=== PATIENT | male | born 1995 | race Caucasian/White ===

== ENCOUNTER 2016-11-08 02:14 | Emergency (ER) | payer SELFPAY ==
[2016-11-08] MEDS ORDERED: Sodium Chloride 0.9% 1000 ML 1,000 ML IV STA (02:34)
--- NOTE | 2016-11-08 02:35 | ERPHSYRPT ---
- History of Present Illness Time Seen by Provider: 11/08/16 02:27 Historian: patient Exam Limitations: no limitations Patient Subjective Stated Complaint: CHEST PAIN Triage Nursing Assessment: PATIENT SMOKED MARIJUANA AND THEN BEGAN EXPERIENCING CHEST PAIN THIS EVENING WAS CONCERNED BECAUSE HASA FAMILY HISTORY BUT ALSO WASNT SURE IF SOMETHING WAS IN DRUGS. PATIETN ALERT AND ORIETNEDX3, PUPILS PERRLA3, PULSES EQUAL BIALT RADIUS, LUNG SOUNDS CLEAR, BOWEL SOUNDS X4 Physician History: FOR THE PAST 31.5 HOURS PT HAS HAD CONSTANT SHARP LEFT ANTERIOR CHEST PAIN WITH DIAPHORESIS; DENIES NAUSEA, VOMITING, FEVER, SHORTNESS OF AIR; ADMITS TO CHRONIC DIARRHEA FOR YEARS. Aspirin Treatment Today: 81 mg x 4, provided by ED Allergies/Adverse Reactions: amoxicillin Allergy (Verified 11/08/16 02:24) Hx Tetanus, Diphtheria Vaccination/Date Given: Yes Immunizations Up to Date: Yes - Review of Systems Constitutional: No Fever Respiratory: No Dyspnea Cardiac: Chest Pain Abdominal/Gastrointestinal: Diarrhea, No Nausea, No Vomiting Endocrine: Excessive Sweating All Other Systems: Reviewed and Negative - Past Medical History Pertinent Past Medical History: No Respiratory History: Asthma Psycho-Social History: Bipolar, Depression - Past Surgical History Past Surgical History: Yes Gastrointestinal: Appendectomy - Social History Smoking Status: Current every day smoker Drug Use: marijuana - Nursing Vital Signs Nursing Vital Signs: Initial Vital Signs Temperature 99.4 F Temperature Source Oral Pulse Rate 96 Respiratory Rate 20 Blood Pressure [] 126/84 Pain Intensity 5 - Physical Exam General Appearance: alert, anxiety Eye Exam: PERRL/EOMI Ears, Nose, Throat Exam: TMs normal, pharyngeal erythema Neck Exam: normal inspection Respiratory Exam: lungs clear Cardiovascular Exam: normal heart sounds Gastrointestinal/Abdomen Exam: soft, normal bowel sounds Back Exam: normal range of motion Extremity Exam: No pedal edema Neurologic Exam: alert, cooperative Skin Exam: warm, dry, rash (SCATTERED 1-2 MM DIAMETER ERYTHEMATOUS PAPULES OVER CHEST AND EXTREMITIES.) SpO2 Interpretation: normal SpO2: 98 Oxygen Delivery: Room Air - Course Nursing assessment & vital signs reviewed: Yes EKG Interpreted by Me: RATE (83), Sinus Rhythm, NORMAL AXIS, NORMAL INTERVALS, ST Elev (I & aVL) - Radiology Exams Chest X-ray Interpretation: Interpreted by me, No Pneumonia Ordered Tests: Active Orders 24 hr Category Date Time Status EKG-ER Only STAT Care 11/08/16 02:34 Active EKG-ER Only STAT Care 11/08/16 03:21 Active IV Insertion STAT Care 11/08/16 02:34 Active CHEST 2 VIEWS (PA AND LAT) Stat Exams 11/08/16 02:33 Taken AMYLASE Stat Lab 11/08/16 02:35 Completed CBC W DIFF Stat Lab 11/08/16 02:35 Completed CMP Stat Lab 11/08/16 02:35 Completed CULTURE, THROAT Stat Lab 11/08/16 02:42 Received LIPASE Stat Lab 11/08/16 02:35 Completed MAGNESIUM Stat Lab 11/08/16 02:35 Completed Box Elder Screen Stat Lab 11/08/16 02:35 Completed STREP SCREEN-BETA A Stat Lab 11/08/16 02:42 Completed TROPONIN Q3H Lab 11/08/16 02:35 Completed TROPONIN Q3H Lab 11/08/16 05:45 Ordered TROPONIN Q3H Lab 11/08/16 08:45 Ordered TROPONIN Q3H Lab 11/08/16 11:45 Ordered TROPONIN Q3H Lab 11/08/16 14:45 Ordered TROPONIN Stat Lab 11/08/16 04:00 Received UA W/ MICROSCOPIC Stat Lab 11/08/16 03:30 Completed Urine Triage Profile Stat Lab 11/08/16 03:30 Completed Medication Summary Generic Name Dose Route Start Last Admin Trade Name Freq PRN Reason Stop Dose Admin Potassium Chloride 100 mls @ 50 mls/hr 11/08/16 03:36 11/08/16 03:42 Potassium Chloride 20 Meq In Water 100ml IV 11/08/16 05:35 50 mls/hr STAT ONE Administration Nitroglycerin/Dextrose 250 mls @ 1.5 mls/hr 11/08/16 04:15 Ntg 0.2mg/Ml In D5w Glass IV 12/08/16 04:14 .Q24H PRN CHEST PAIN Protocol 5 MCG/MIN Discontinued Medications Generic Name Dose Route Start Last Admin Trade Name Freq PRN Reason Stop Dose Admin Aspirin 324 mg 11/08/16 03:38 11/08/16 03:42 Baby Aspirin 81 Mg Chew PO 11/08/16 03:39 324 mg STAT ONE Administration Aspirin Confirm 11/08/16 03:41 Baby Aspirin 81 Mg Chew Administered 11/08/16 03:42 Dose 324 mg .ROUTE .STK-MED ONE Enoxaparin Sodium 68 mg 11/08/16 04:15 Enoxaparin Sodium SQ 11/08/16 04:16 STAT ONE Sodium Chloride 1,000 mls @ 999 mls/hr 11/08/16 02:34 11/08/16 02:57 Sodium Chloride 0.9% 1000 Ml IV 11/08/16 03:34 999 mls/hr .Q1H1M STA Administration Sodium Chloride Confirm 11/08/16 02:55 Sodium Chloride 0.9% 1000 Ml Administered 11/08/16 02:56 Dose 1,000 mls @ ud .ROUTE .STK-MED ONE Potassium Chloride Confirm 11/08/16 03:42 Potassium Chloride 20 Meq In Water 100ml Administered 11/08/16 03:43 Dose 100 mls @ ud IV .STK-MED ONE Nitroglycerin 0.4 mg 11/08/16 03:38 11/08/16 03:42 Nitrostat 0.4 Mg (Ed) SL 11/08/16 03:39 0.4 mg STAT ONE Administration Nitroglycerin Confirm 11/08/16 03:41 Nitrostat 0.4 Mg (Ed) Administered 11/08/16 03:42 Dose 0.4 mg SL .STK-MED ONE Lab/Rad Data: Laboratory Result Diagrams 11/08/16 02:35 11/08/16 02:35 Laboratory Results 11/08/16 11/08/16 11/08/16 Range/Units 03:30 03:30 02:42 WBC (4.0-10.5) K/mm3 RBC (4.1-5.6) M/mm3 Hgb (12.5-18.0) gm/dl Hct (42-50) % MCV (78-100) fl MCH (26-32) pg MCHC (32-36) g/dl RDW (11.5-14.0) % Plt Count (150-450) K/mm3 MPV (6-9.5) fl Gran % (36.0-66.0) % Lymphocytes % (24.0-44.0) % Monocytes % (0.0-12.0) % Eosinophils % (0.00-5.0) % Basophils % (0.0-0.4) % Basophils # (0-0.4) Sodium (136-145) mEq/L Potassium (3.5-5.1) mEq/L Chloride (98-107) mEq/L Carbon Dioxide (21-32) mEq/L Anion Gap (5-15) MEQ/L BUN (9-20) mg/dL Creatinine (0.55-1.30) mg/dl Estimated GFR ML/MIN Glucose (70-110) MG/DL Calcium (8.5-10.1) mg/dL Magnesium (1.8-2.4) mg/dL Total Bilirubin (0.2-1.0) mg/dL AST (15-37) U/L ALT (12-78) U/L Alkaline Phosphatase (46-116) U/L Troponin I (0.000-0.056) ng/ml Serum Total Protein (6.4-8.2) gm/dL Albumin (3.4-5.0) g/dL Amylase (25-115) U/L Lipase (73-393) U/L Ur Collection Type CLEAN CATCH Urine Color CARLOS (YELLOW) Urine Appearance CLEAR (CLEAR) Urine pH 5.5 (5-6) Ur Specific [place] 1.025 (1.005-1.025) Urine Protein TRACE (Negative) Urine Glucose (UA) NEGATIVE (NEGATIVE) mg/dL Urine Ketones NEGATIVE (NEGATIVE) Urine Nitrite NEGATIVE (NEGATIVE) Urine Bilirubin NEGATIVE (NEGATIVE) Urine Urobilinogen 2 (0-1) mg/dL Urine WBC (Auto) NEGATIVE (NEGATIVE) Urine RBC (Auto) TRACE HEMOLYZED (0-5) Julio/ul Ur Epithelial Cells FEW (FEW) /HPF Urine Mucus SLIGHT (NEGATIVE) /HPF Urine Opiates Level NEG. (NEGATIVE) Ur Methadone NEG. (NEGATIVE) Urine Barbiturates NEG. (NEGATIVE) Ur Phencyclidine (PCP) NEG. (NEGATIVE) Urine Amphetamine NEG. (NEGATIVE) U Benzodiazepine Level NEG. (NEGATIVE) Urine Cocaine NEG. (NEGATIVE) Urine Marijuana (THC) POS. (NEGATIVE) Monoscreen (Negative) Streptococcus Screen NEGATIVE (Negative) Specimen Received 11/08/16:0330 11/08/16 11/08/16 11/08/16 Range/Units 02:35 02:35 02:35 WBC (4.0-10.5) K/mm3 RBC (4.1-5.6) M/mm3 Hgb (12.5-18.0) gm/dl Hct (42-50) % MCV (78-100) fl MCH (26-32) pg MCHC (32-36) g/dl RDW (11.5-14.0) % Plt Count (150-450) K/mm3 MPV (6-9.5) fl Gran % (36.0-66.0) % Lymphocytes % (24.0-44.0) % Monocytes % (0.0-12.0) % Eosinophils % (0.00-5.0) % Basophils % (0.0-0.4) % Basophils # (0-0.4) Sodium 138 (136-145) mEq/L Potassium 3.0 L* (3.5-5.1) mEq/L Chloride 101 (98-107) mEq/L Carbon Dioxide 27.7 (21-32) mEq/L Anion Gap 13.5 (5-15) MEQ/L BUN 14 (9-20) mg/dL Creatinine 0.99 (0.55-1.30) mg/dl Estimated GFR > 60 ML/MIN Glucose 119 H (70-110) MG/DL Calcium 9.2 (8.5-10.1) mg/dL Magnesium 2.1 (1.8-2.4) mg/dL Total Bilirubin 0.50 (0.2-1.0) mg/dL AST 33 (15-37) U/L ALT 21 (12-78) U/L Alkaline Phosphatase 103 (46-116) U/L Troponin I 3.921 H* (0.000-0.056) ng/ml Serum Total Protein 8.5 H (6.4-8.2) gm/dL Albumin 4.3 (3.4-5.0) g/dL Amylase 25 (25-115) U/L Lipase 70 L (73-393) U/L Ur Collection Type Urine Color (YELLOW) Urine Appearance (CLEAR) Urine pH (5-6) Ur Specific [place] (1.005-1.025) Urine Protein (Negative) Urine Glucose (UA) (NEGATIVE) mg/dL Urine Ketones (NEGATIVE) Urine Nitrite (NEGATIVE) Urine Bilirubin (NEGATIVE) Urine Urobilinogen (0-1) mg/dL Urine WBC (Auto) (NEGATIVE) Urine RBC (Auto) (0-5) Julio/ul Ur Epithelial Cells (FEW) /HPF Urine Mucus (NEGATIVE) /HPF Urine Opiates Level (NEGATIVE) Ur Methadone (NEGATIVE) Urine Barbiturates (NEGATIVE) Ur Phencyclidine (PCP) (NEGATIVE) Urine Amphetamine (NEGATIVE) U Benzodiazepine Level (NEGATIVE) Urine Cocaine (NEGATIVE) Urine Marijuana (THC) (NEGATIVE) Monoscreen NEGATIVE (Negative) Streptococcus Screen (Negative) Specimen Received 11/08/16 Range/Units 02:35 WBC 9.1 (4.0-10.5) K/mm3 RBC 5.02 (4.1-5.6) M/mm3 Hgb 15.3 (12.5-18.0) gm/dl Hct 44.1 (42-50) % MCV 87.8 (78-100) fl MCH 30.5 (26-32) pg MCHC 34.7 (32-36) g/dl RDW 13.0 (11.5-14.0) % Plt Count 266 (150-450) K/mm3 MPV 10.0 H (6-9.5) fl Gran % 60.2 (36.0-66.0) % Lymphocytes % 26.4 (24.0-44.0) % Monocytes % 12.9 H (0.0-12.0) % Eosinophils % 0.3 (0.00-5.0) % Basophils % 0.2 (0.0-0.4) % Basophils # 0.02 (0-0.4) Sodium (136-145) mEq/L Potassium (3.5-5.1) mEq/L Chloride (98-107) mEq/L Carbon Dioxide (21-32) mEq/L Anion Gap (5-15) MEQ/L BUN (9-20) mg/dL Creatinine (0.55-1.30) mg/dl Estimated GFR ML/MIN Glucose (70-110) MG/DL Calcium (8.5-10.1) mg/dL Magnesium (1.8-2.4) mg/dL Total Bilirubin (0.2-1.0) mg/dL AST (15-37) U/L ALT (12-78) U/L Alkaline Phosphatase (46-116) U/L Troponin I (0.000-0.056) ng/ml Serum Total Protein (6.4-8.2) gm/dL Albumin (3.4-5.0) g/dL Amylase (25-115) U/L Lipase (73-393) U/L Ur Collection Type Urine Color (YELLOW) Urine Appearance (CLEAR) Urine pH (5-6) Ur Specific [place] (1.005-1.025) Urine Protein (Negative) Urine Glucose (UA) (NEGATIVE) mg/dL Urine Ketones (NEGATIVE) Urine Nitrite (NEGATIVE) Urine Bilirubin (NEGATIVE) Urine Urobilinogen (0-1) mg/dL Urine WBC (Auto) (NEGATIVE) Urine RBC (Auto) (0-5) Julio/ul Ur Epithelial Cells (FEW) /HPF Urine Mucus (NEGATIVE) /HPF Urine Opiates Level (NEGATIVE) Ur Methadone (NEGATIVE) Urine Barbiturates (NEGATIVE) Ur Phencyclidine (PCP) (NEGATIVE) Urine Amphetamine (NEGATIVE) U Benzodiazepine Level (NEGATIVE) Urine Cocaine (NEGATIVE) Urine Marijuana (THC) (NEGATIVE) Monoscreen (Negative) Streptococcus Screen (Negative) Specimen Received - Progress Progress Note: 11/08/16 04:[address] SAWANT WHO CALLED BACK AND STATED THIS WAS NOT A STEMI. PT TO BE TRANSFERRED TO [facility] A DIRECT ADMISSION. Discussed with Dr.: Other (SPOKE WITH DR SAWANT([employer])([id number]) WHO ACCEPTED PT FOR TRANSFER TO [facility] A DIRECT ADMISSION.) - Departure Time of Disposition: 04:23 Departure Disposition: Transfer ([facility]) Clinical Impression: CHEST PAIN, ELEVATED TROPONIN, HYPOKALEMIA, BIPOLAR DISORDER Condition: Stable Critical Care Time: Yes Critical Care Time(excluding separately billable procedures): 30-74 minutes Referrals: DOCTOR,NO FAMILY [Primary Care Provider] -
[2016-11-08 02:47] LABS: BASOPHIL % 0.2 % (0.0-0.4); Eosinophil % 0.3 % (0.00-5.0); Granulocytes % 60.2 % (36.0-66.0); Lymphocytes % 26.4 % (24.0-44.0); Mean Cell Volume 87.8 fl (78-100); Mean Corpuscular Hemoglobin 30.5 pg (26-32); Monocytes % 12.9 % (0.0-12.0); Platelet Count 266 K/mm3 (150-450); Red Blood Count 5.02 M/mm3 (4.1-5.6); White Blood Count 9.1 K/mm3 (4.0-10.5)
[2016-11-08] MEDS ORDERED: Sodium Chloride 0.9% 1000 ML 1,000 ML ONE ×2 (02:55→04:32)
[2016-11-08 03:10] LABS: ALBUMIN 4.3 g/dL (3.4-5.0); ALKALINE PHOSPHATASE 103 U/L (46-116); ANION GAP 13.5 MEQ/L (5-15); BLOOD UREA NITROGEN 14 mg/dL (9-20); CHLORIDE 101 mEq/L (98-107); Carbon Dioxide 27.7 mEq/L (21-32); Glucose 119 MG/DL (70-110); LIPASE 70 U/L (73-393); MAGNESIUM 2.1 mg/dL (1.8-2.4); SGOT/AST 33 U/L (15-37); SGPT/ALT 21 U/L (12-78); Total Protein 8.5 gm/dL (6.4-8.2)
[2016-11-08 03:33] LABS: SODIUM 138 mEq/L (136-145)
[2016-11-08] MEDS ORDERED: POTASSIUM CHLORIDE 20 mEq IN WATER 100ML 100 ML IV ONE ×2 (03:36→03:42)
[2016-11-08] MEDS ORDERED: BABY ASPIRIN 81 MG CHEW PO ONE (03:38)
[2016-11-08] MEDS ORDERED: Nitrostat 0.4 MG (ED) SL ONE ×2 (03:38→03:41)
[2016-11-08] MEDS ORDERED: BABY ASPIRIN 81 MG CHEW ONE (03:41)
[2016-11-08 03:51] LABS: ADD URINE CULTURE? NO (NO); COMPLETE URINE MICROSCOPIC? YES; Collection Type CLEAN CATCH; Epithelial Cells FEW /HPF (FEW); Mucus SLIGHT /HPF (NEGATIVE); Ph 5.5 (5-6)
[2016-11-08] MEDS ORDERED: Ntg 0.2MG/Ml in D5W GLASS*** 250 ML IV PRN (04:15)
[2016-11-08] MEDS ORDERED: ENOXAPARIN SODIUM SQ ONE ×2 (04:15→04:24)
[2016-11-08] MEDS ORDERED: Ntg 0.2MG/Ml in D5W GLASS*** 250 ML IV ONE (04:24)
[2016-11-08 05:11] VITALS: BP 124/75
[2016-11-08 05:18] VITALS: PULSE 78; O2SAT 99
[2016-11-08] MEDS ORDERED: Sodium Chloride 0.9% 1000 ML 1,000 ML IV SCH (05:30)
--- NOTE | 2016-11-08 08:14 | XRAY ---
Indication: Pain. Comparison: None PA/lateral chest demonstrates normal heart and lungs. 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
== END 2016-11-08 05:15 | disposition short-term general hospital (02) ==
LOC: ED 02:14
DX: R07.89 Other chest pain (principal); R79.89 Other specified abnormal findings of blood chemistry; E87.6 Hypokalemia; F31.9 Bipolar disorder, unspecified; F12.90 Cannabis use, unspecified, uncomplicated; R61 Generalized hyperhidrosis
CPT/HCPCS: 36000; 36415; 71020; 80053; 80307; 81000; 82150; 83690; 83735; 84484; 85025; 86308; 87070; 87430; 93005; 93041; 96360; 96361; 96365; 96367; 96368; 96372; 99285; J1650; J3480; A9270-GY